=== PATIENT | female | born 1980 | race Caucasian/White ===

== ENCOUNTER 2017-01-17 23:22 | Inpatient (IN) | payer MEDICARE, MEDICAID ==
[~2017-01-17] VITALS: Ht 162.6 cm; Wt 80.8 kg
[2017-01-18] MEDS ORDERED: TEMA15CA PO (02:01)
[2017-01-18] MEDS ORDERED: ARIP300S3 IM (02:01)
[2017-01-18] MEDS ORDERED: TOPI25 PO (02:01)
[2017-01-18] MEDS: LORazepam 2 MG TABLET PO PRN (02:25)
[2017-01-18] MEDS: HALOPERIDOL 5 MG TABLET PO PRN (02:25)
[2017-01-18] MEDS ORDERED: INFLUENZA VIRUS VACCINE QVS 2017-18 (3YR+)/PF 60 MCG/0.5 ML SYRINGE IM ONE (02:30)
[2017-01-18 02:52] VITALS: BP 106/74
[2017-01-18] MEDS ORDERED: BENZOCAINE/MENTHOL LOZENGE MM PRN (07:45)
[2017-01-18] MEDS ORDERED: LOPERAMIDE HCL 2 MG CAPSULE PO PRN (07:45)
[2017-01-18] MEDS ORDERED: ONDANSETRON HCL 4 MG TABLET PO PRN (07:45)
[2017-01-18] MEDS ORDERED: CloNIDine HCL 0.1 MG TABLET PO PRN (07:45)
[2017-01-18] MEDS ORDERED: ALBUTEROL SULFATE HFA 90 MCG/PUFF 8 GM INHALER IH PRN (07:45)
[2017-01-18] MEDS ORDERED: MAGNESIUM HYDROXIDE SUSPENSION 30 ML UDCUP PO PRN (07:45)
[2017-01-18] MEDS ORDERED: BACITRACIN 28.4 GM OINTMENT TP PRN (07:45)
[2017-01-18] MEDS ORDERED: MAG HYDROX/AL HYDROX/SIMETH ES 30 ML SUSPENSION UDCUP PO PRN (07:45)
[2017-01-18] MEDS ORDERED: PETROLATUM,WHITE 71 GM JELLY TP PRN (07:45)
[2017-01-18] MEDS ORDERED: IBUPROFEN 600 MG TABLET PO PRN (07:45)
[2017-01-18 08:10] VITALS: BP 117/70
[2017-01-18] MEDS ORDERED: HYDROCORTISONE 1% 30 GM OINTMENT TP PRN (13:15)
[2017-01-18 16:19] VITALS: BP 118/66
[2017-01-18] MEDS: LITHIUM CARBONATE 300 MG CAPSULE PO SCH (16:52)
[2017-01-19 00:08] VITALS: BP 116/77
[2017-01-19] MEDS: LITHIUM CARBONATE 300 MG CAPSULE PO SCH ×2 (08:28→16:12)
[2017-01-19 08:32] VITALS: BP 121/65
[2017-01-19] MEDS: ACETAMINOPHEN 325 MG TABLET PO PRN (08:32)
[2017-01-19 08:56] LABS: BASOPHILS # (AUTO) 0.04 K/uL (0.00-0.20); BASOPHILS % (AUTO) 0.6 % (0.0-2.0); EOSINOPHILS # (AUTO) 0.32 K/uL (0.00-0.70); EOSINOPHILS % (AUTO) 3.98 % (1.0-6.0); HEMATOCRIT 43.6 % (36-46); HEMOGLOBIN 14.6 g/dL (12.0-16.0); LYMPHOCYTES # (AUTO) 2.5 K/uL (1.0-4.8); LYMPHOCYTES % (AUTO) 31.5 % (22.0-44.0); MEAN CORPUSCULAR HEMOGLOBIN 29.8 pg (26.0-34.0); MEAN CORPUSCULAR HGB CONC 33.5 G/dL (31.0-37.0); MEAN CORPUSCULAR VOLUME 89 fL (80-100); MONOCYTES # (AUTO) 0.7 K/uL (0.1-1.0); MONOCYTES % (AUTO) 8.4 % (2.0-9.0); NEUTROPHILS # (AUTO) 4.5 K/uL (1.8-7.7); NEUTROPHILS % (AUTO) 55.6 % (40.0-70.0); PLATELET COUNT (AUTO) 236 K/uL (150-450); RED CELL DISTRIBUTION WIDTH 12.9 % (11.5-14.5)
[2017-01-19 09:54] LABS: ALANINE AMINOTRANSFERASE 30 U/L (12-78); ALBUMIN 3.9 g/dL (3.4-5.0); ANION GAP 14 mmol/L (8-16); ASPARTATE AMINOTRANSFERASE 22 U/L (15-37); BILIRUBIN,TOTAL 0.7 mg/dL (0.1-1.0); CALCIUM, TOTAL 8.7 mg/dL (8.8-10.5); CARBON DIOXIDE 20 mmol/L (22-29); CHLORIDE 102 mmol/L (98-107); CHOL/HDL RATIO 4.6 (3.9-5.7); CREATININE 0.77 mg/dL (0.60-1.30); GLOMERULAR FILTR. RATE CALC > 60 mL/min (>60); HEMOGLOBIN A1C 5.3 % (4.5-6.2); POTASSIUM 3.9 mmol/L (3.5-5.1); SODIUM SERUM 136 mmol/L (136-145); THYROID STIMULATING HORMONE 1.05 uIU/mL (0.36-3.74); UREA NITROGEN, BLOOD 12 mg/dL (7-18)
[2017-01-19] MEDS: LORazepam 2 MG TABLET PO PRN (11:29)
[2017-01-19] MEDS: HALOPERIDOL 5 MG TABLET PO PRN (11:54)
[2017-01-19 16:19] VITALS: BP 116/70
[2017-01-20 07:23] VITALS: BP 117/62
[2017-01-20] MEDS: LITHIUM CARBONATE 300 MG CAPSULE PO SCH ×2 (08:58→16:26)
[2017-01-20 09:02] VITALS: BP 116/68
[2017-01-20 16:05] VITALS: BP 110/60
[2017-01-20] MEDS: LORazepam 2 MG TABLET PO PRN (18:30)
[2017-01-21 00:12] VITALS: BP 127/82
[2017-01-21 08:53] VITALS: BP 109/62
[2017-01-21] MEDS ORDERED: ARIPiprazole ER SUSPENSION 400 MG PRE-FILLED DUAL CHAMBER SYRINGE IM SCH (09:00)
[2017-01-21] MEDS: LITHIUM CARBONATE 300 MG CAPSULE PO SCH ×2 (09:23→16:08)
[2017-01-21 10:20] LABS: APPEARANCE,URINE TURBID (CLEAR); GLUCOSE, URINE (UA) NEGATIVE (NEGATIVE); KETONES,URINE >=80 mg/dL (NEGATIVE); LEUKOCYTE ESTERASE ,URINE LARGE (NEGATIVE); OCCULT BLOOD,URINE TRACE (NEGATIVE); PROTEIN,URINE NEGATIVE (NEGATIVE)
[2017-01-21 10:30] LABS: ADD UA MICROSCOPIC YES
[2017-01-21 10:32] LABS: RBC,URINE 0-2 /HPF (0-2)
[2017-01-21 10:33] LABS: SQUAMOUS EPITHELIAL CELL,UR Many /LPF (None Seen)
[2017-01-21] MEDS: LORazepam 2 MG TABLET PO PRN (15:47)
[2017-01-21 16:01] VITALS: BP 118/79
[2017-01-21 21:09] VITALS: BP 114/64
[2017-01-21] MEDS: ACETAMINOPHEN 325 MG TABLET PO PRN (21:09)
[2017-01-22 08:38] VITALS: BP 117/68
[2017-01-22] MEDS: LITHIUM CARBONATE 300 MG CAPSULE PO SCH ×2 (10:06→16:19)
[2017-01-22] MEDS: NITROFURANTOIN/NITROFURAN MAC 100 MG CAPSULE [MACROBID] PO SCH ×2 (10:52→16:19)
[2017-01-22] MEDS: LORazepam 2 MG TABLET PO PRN ×2 (12:15→16:25)
[2017-01-22 16:14] VITALS: BP 117/89
[2017-01-22] MEDS: ZOLPIDEM TARTRATE 10 MG TABLET PO PRN (21:29)
[2017-01-23 01:49] VITALS: BP 120/71
[2017-01-23 08:10] VITALS: BP 118/66
[2017-01-23] MEDS: LITHIUM CARBONATE 300 MG CAPSULE PO SCH ×2 (08:47→16:32)
[2017-01-23] MEDS: NITROFURANTOIN/NITROFURAN MAC 100 MG CAPSULE [MACROBID] PO SCH ×2 (08:47→16:32)
[2017-01-23] MEDS: LORazepam 2 MG TABLET PO PRN ×2 (13:02→17:11)
[2017-01-23 13:09] VITALS: BP 123/78
[2017-01-23 16:45] VITALS: BP 109/60
[2017-01-23] MEDS: ZOLPIDEM TARTRATE 10 MG TABLET PO PRN (20:27)
[2017-01-24 08:37] VITALS: BP 119/70
[2017-01-24] MEDS: NITROFURANTOIN/NITROFURAN MAC 100 MG CAPSULE [MACROBID] PO SCH ×2 (08:40→18:04)
[2017-01-24] MEDS: LITHIUM CARBONATE 300 MG CAPSULE PO SCH ×2 (08:40→16:30)
[2017-01-24 10:23] VITALS: BP 116/72
[2017-01-24] MEDS: ACETAMINOPHEN 325 MG TABLET PO PRN (10:23)
[2017-01-24 16:29] VITALS: BP 117/83
[2017-01-24] MEDS: LORazepam 2 MG TABLET PO PRN (16:29)
[2017-01-24] MEDS: ZOLPIDEM TARTRATE 10 MG TABLET PO PRN (20:51)
[2017-01-25 01:33] VITALS: BP 110/60
[2017-01-25 08:26] VITALS: BP 105/66
[2017-01-25] MEDS: LITHIUM CARBONATE 300 MG CAPSULE PO SCH (08:29)
[2017-01-25] MEDS: NITROFURANTOIN/NITROFURAN MAC 100 MG CAPSULE [MACROBID] PO SCH (08:29)
[2017-01-25] MEDS ORDERED: LITH300C3 PO (12:02)
[2017-01-25] MEDS ORDERED: NITR100C4 PO (12:02)
[2017-02-17] MEDS ORDERED: ARIPiprazole ER SUSPENSION 400 MG PRE-FILLED DUAL CHAMBER SYRINGE IM SCH (09:00)
== END 2017-01-25 13:30 | disposition home or self-care (01) | DRG 885 ==
LOC: B2X 01-18 02:08
PROVIDERS: ADMIT Psychiatry & Neurology Psychiatry; ATTEND Psychiatry & Neurology Psychiatry
DX: F25.9 Schizoaffective disorder, unspecified (principal); F12.90 Cannabis use, unspecified, uncomplicated; N39.0 Urinary tract infection, site not specified; F32.9 Major depressive disorder, single episode, unspecified; F15.10 Other stimulant abuse, uncomplicated; F41.9 Anxiety disorder, unspecified; G47.00 Insomnia, unspecified; Z28.21 Immunization not carried out because of patient refusal; Z71.51 Drug abuse counseling and surveillance of drug abuser; Z88.1 Allergy status to other antibiotic agents; Z88.0 Allergy status to penicillin
CPT/HCPCS: 80307; 83036; 84439; 84443; 87086; J0401